=== PATIENT | female | born 2000 | race Caucasian/White ===

== ENCOUNTER 2018-05-10 13:55 | Emergency (ER) | payer OTHER ==
[~2018-05-10] VITALS: Ht 162.6 cm; Wt 70.8 kg
[~2018-05-10 13:55] MED LIST: HYDROCODON-ACE1 EAC7 PO; NAPROSYN375 MG PO; NOHOMEMEDICATIONS; PREDNISONE 20 M20 M1 PO; PRELONE15 MG/5 ML PO
[2018-05-10] MEDS ORDERED: ZOLOFT25 MG PO (14:07)
[2018-05-10 15:51] VITALS: BP 115/61
== END 2018-05-10 15:51 | disposition home or self-care (01) ==
LOC: M.ERS 13:55
DX: S60.051A Contusion of right little finger without damage to nail, initial encounter (principal); S69.81XA Other specified injuries of right wrist, hand and finger(s), initial encounter; F41.9 Anxiety disorder, unspecified; W10.8XXA Fall (on) (from) other stairs and steps, initial encounter; Y93.89 Activity, other specified; Y92.89 Other specified places as the place of occurrence of the external cause; Y99.8 Other external cause status; Z88.8 Allergy status to other drugs, medicaments and biological substances

== ENCOUNTER → 2019-02-26 | Outpatient (CLI) | payer OTHER ==
[~2019-02-26] MED LIST changes: +ZOLOFT25 MG PO
== END ==
LOC: M.RAD 18:35
DX: R05 Cough (principal)